=== PATIENT | male | born 1945 | race Caucasian/White ===

== ENCOUNTER → 2018-04-22 | Outpatient (CLI) | payer MEDICARE ==
[~2018-04-22] VITALS: Ht 177.8 cm; Wt 89.9 kg
[~2018-04-22] MED LIST: ALBU2.5V2 NEB; ASPI-891 PO; ATOR40TA28 PO; FURO40 PO; INSLAN SQ; IODOG TP; LOSA50TA37 PO; MULT-1203 PO; OMEG-50 PO
[2018-04-22 10:55] VITALS: BP 133/70
== END | disposition home or self-care (01) ==
LOC: HBOWC 10:14
PROVIDERS: ATTEND Emergency Medicine
DX: T87.89 Other complications of amputation stump (principal); S81.801A Unspecified open wound, right lower leg, initial encounter; E11.42 Type 2 diabetes mellitus with diabetic polyneuropathy; E11.610 Type 2 diabetes mellitus with diabetic neuropathic arthropathy; E11.51 Type 2 diabetes mellitus with diabetic peripheral angiopathy without gangrene; L84 Corns and callosities; Y83.5 Amputation of limb(s) as the cause of abnormal reaction of the patient, or of later complication, without mention of misadventure at the time of the procedure; Y92.89 Other specified places as the place of occurrence of the external cause; X58.XXXA Exposure to other specified factors, initial encounter; Y93.89 Activity, other specified; Y99.8 Other external cause status
CPT/HCPCS: 11042; G0463

== ENCOUNTER → 2018-05-06 | Outpatient (CLI) | payer MEDICARE ==
[2018-05-06 11:20] VITALS: BP 127/55
== END | disposition home or self-care (01) ==
LOC: HBOWC 10:54
PROVIDERS: ATTEND Emergency Medicine
DX: T87.89 Other complications of amputation stump (principal); S81.801D Unspecified open wound, right lower leg, subsequent encounter; E11.42 Type 2 diabetes mellitus with diabetic polyneuropathy; E11.610 Type 2 diabetes mellitus with diabetic neuropathic arthropathy; E11.51 Type 2 diabetes mellitus with diabetic peripheral angiopathy without gangrene; L84 Corns and callosities; X58.XXXD Exposure to other specified factors, subsequent encounter; Y83.5 Amputation of limb(s) as the cause of abnormal reaction of the patient, or of later complication, without mention of misadventure at the time of the procedure
CPT/HCPCS: 11042

== ENCOUNTER → 2018-05-13 | Outpatient (CLI) | payer MEDICARE ==
[2018-05-13 08:54] VITALS: BP 103/53
== END | disposition home or self-care (01) ==
LOC: HBOWC 08:28
PROVIDERS: ATTEND Emergency Medicine
DX: T87.89 Other complications of amputation stump (principal); S91.301D Unspecified open wound, right foot, subsequent encounter; E11.42 Type 2 diabetes mellitus with diabetic polyneuropathy; E11.610 Type 2 diabetes mellitus with diabetic neuropathic arthropathy; E11.51 Type 2 diabetes mellitus with diabetic peripheral angiopathy without gangrene; L84 Corns and callosities; X58.XXXD Exposure to other specified factors, subsequent encounter; Y83.5 Amputation of limb(s) as the cause of abnormal reaction of the patient, or of later complication, without mention of misadventure at the time of the procedure
CPT/HCPCS: 11042

== ENCOUNTER → 2018-05-20 | Outpatient (CLI) | payer MEDICARE ==
[2018-05-20 08:52] VITALS: BP 151/71
== END | disposition home or self-care (01) ==
LOC: HBOWC 08:36
PROVIDERS: ATTEND Emergency Medicine
DX: T87.89 Other complications of amputation stump (principal); S91.301D Unspecified open wound, right foot, subsequent encounter; E11.42 Type 2 diabetes mellitus with diabetic polyneuropathy; E11.610 Type 2 diabetes mellitus with diabetic neuropathic arthropathy; E11.51 Type 2 diabetes mellitus with diabetic peripheral angiopathy without gangrene; L84 Corns and callosities; X58.XXXD Exposure to other specified factors, subsequent encounter; Y83.5 Amputation of limb(s) as the cause of abnormal reaction of the patient, or of later complication, without mention of misadventure at the time of the procedure
CPT/HCPCS: 11042

== ENCOUNTER → 2018-05-27 | Outpatient (CLI) | payer MEDICARE ==
[~2018-05-27] MED LIST changes: +LIDOCAINE HCL 2% 5 ML JELLY TP ONE
[2018-05-27 08:05] VITALS: BP 148/74
== END | disposition home or self-care (01) ==
LOC: HBOWC 07:52
PROVIDERS: ATTEND Emergency Medicine
DX: T87.89 Other complications of amputation stump (principal); S91.301D Unspecified open wound, right foot, subsequent encounter; E11.42 Type 2 diabetes mellitus with diabetic polyneuropathy; E11.610 Type 2 diabetes mellitus with diabetic neuropathic arthropathy; E11.51 Type 2 diabetes mellitus with diabetic peripheral angiopathy without gangrene; L84 Corns and callosities; Y83.5 Amputation of limb(s) as the cause of abnormal reaction of the patient, or of later complication, without mention of misadventure at the time of the procedure
CPT/HCPCS: 11042

== ENCOUNTER → 2018-06-03 | Outpatient (CLI) | payer MEDICARE ==
[~2018-06-03] MED LIST changes: -LIDOCAINE HCL 2% 5 ML JELLY TP ONE
== END | disposition home or self-care (01) ==
LOC: RADPV 08:38
PROVIDERS: ATTEND Emergency Medicine
DX: I73.9 Peripheral vascular disease, unspecified (principal); E11.621 Type 2 diabetes mellitus with foot ulcer; E11.42 Type 2 diabetes mellitus with diabetic polyneuropathy; L97.919 Non-pressure chronic ulcer of unspecified part of right lower leg with unspecified severity; M21.6X1 Other acquired deformities of right foot; E11.51 Type 2 diabetes mellitus with diabetic peripheral angiopathy without gangrene
CPT/HCPCS: 93925

== ENCOUNTER → 2018-06-03 | Outpatient (CLI) | payer MEDICARE ==
[~2018-06-03] MED LIST changes: +LIDOCAINE HCL 2% 5 ML JELLY TP ONE
[2018-06-03 08:58] VITALS: BP 146/77
== END | disposition home or self-care (01) ==
LOC: HBOWC 08:40
PROVIDERS: ATTEND Emergency Medicine
DX: T87.89 Other complications of amputation stump (principal); S91.301D Unspecified open wound, right foot, subsequent encounter; E11.42 Type 2 diabetes mellitus with diabetic polyneuropathy; E11.610 Type 2 diabetes mellitus with diabetic neuropathic arthropathy; E11.51 Type 2 diabetes mellitus with diabetic peripheral angiopathy without gangrene; L84 Corns and callosities; X58.XXXD Exposure to other specified factors, subsequent encounter; Y83.5 Amputation of limb(s) as the cause of abnormal reaction of the patient, or of later complication, without mention of misadventure at the time of the procedure
CPT/HCPCS: 11042

== ENCOUNTER → 2018-06-10 | Outpatient (CLI) | payer MEDICARE ==
[2018-06-10 09:25] VITALS: BP 123/63
[2018-06-10 10:13] LABS: GLUCOMETER DEV NAME(LOC) HBW; GLUCOSE,POINT OF CARE 91 MG/DL (70-110)
== END | disposition home or self-care (01) ==
LOC: HBOWC 09:03
PROVIDERS: ATTEND Emergency Medicine
DX: T87.89 Other complications of amputation stump (principal); S91.301D Unspecified open wound, right foot, subsequent encounter; E11.42 Type 2 diabetes mellitus with diabetic polyneuropathy; E11.610 Type 2 diabetes mellitus with diabetic neuropathic arthropathy; E11.51 Type 2 diabetes mellitus with diabetic peripheral angiopathy without gangrene; L84 Corns and callosities; X58.XXXD Exposure to other specified factors, subsequent encounter; Y83.5 Amputation of limb(s) as the cause of abnormal reaction of the patient, or of later complication, without mention of misadventure at the time of the procedure
CPT/HCPCS: 11042

== ENCOUNTER → 2018-06-17 | Outpatient (CLI) | payer MEDICARE ==
[~2018-06-17] MED LIST changes: -LIDOCAINE HCL 2% 5 ML JELLY TP ONE
[2018-06-17 09:20] VITALS: BP 129/56
== END | disposition home or self-care (01) ==
LOC: HBOWC 08:56
PROVIDERS: ATTEND Emergency Medicine
DX: T87.89 Other complications of amputation stump (principal); S91.301D Unspecified open wound, right foot, subsequent encounter; E11.42 Type 2 diabetes mellitus with diabetic polyneuropathy; E11.610 Type 2 diabetes mellitus with diabetic neuropathic arthropathy; E11.51 Type 2 diabetes mellitus with diabetic peripheral angiopathy without gangrene; L84 Corns and callosities; X58.XXXD Exposure to other specified factors, subsequent encounter; Y83.5 Amputation of limb(s) as the cause of abnormal reaction of the patient, or of later complication, without mention of misadventure at the time of the procedure
CPT/HCPCS: 11042

== ENCOUNTER → 2018-06-24 | Outpatient (CLI) | payer MEDICARE ==
[~2018-06-24] MED LIST changes: +LIDOCAINE HCL 2% 5 ML JELLY TP ONE
[2018-06-24 09:20] VITALS: BP 124/65
== END | disposition home or self-care (01) ==
LOC: HBOWC 08:54
PROVIDERS: ATTEND Emergency Medicine
DX: T87.89 Other complications of amputation stump (principal); S91.301D Unspecified open wound, right foot, subsequent encounter; E11.42 Type 2 diabetes mellitus with diabetic polyneuropathy; E11.610 Type 2 diabetes mellitus with diabetic neuropathic arthropathy; E11.51 Type 2 diabetes mellitus with diabetic peripheral angiopathy without gangrene; L84 Corns and callosities; X58.XXXD Exposure to other specified factors, subsequent encounter; Y83.5 Amputation of limb(s) as the cause of abnormal reaction of the patient, or of later complication, without mention of misadventure at the time of the procedure
CPT/HCPCS: 11042

== ENCOUNTER → 2018-07-08 | Outpatient (CLI) | payer MEDICARE ==
[~2018-07-08] MED LIST changes: -LIDOCAINE HCL 2% 5 ML JELLY TP ONE; +LOSA50TA25 PO; -LOSA50TA37 PO
[2018-07-08 09:30] VITALS: BP 127/72
== END | disposition home or self-care (01) ==
LOC: HBOWC 09:19
PROVIDERS: ATTEND Emergency Medicine
DX: T87.89 Other complications of amputation stump (principal); E11.628 Type 2 diabetes mellitus with other skin complications; E11.610 Type 2 diabetes mellitus with diabetic neuropathic arthropathy; E11.42 Type 2 diabetes mellitus with diabetic polyneuropathy; E11.51 Type 2 diabetes mellitus with diabetic peripheral angiopathy without gangrene; L84 Corns and callosities; Y83.5 Amputation of limb(s) as the cause of abnormal reaction of the patient, or of later complication, without mention of misadventure at the time of the procedure
CPT/HCPCS: 11042

== ENCOUNTER → 2018-07-15 | Outpatient (CLI) | payer MEDICARE ==
[2018-07-15 09:15] VITALS: BP 148/69
== END | disposition home or self-care (01) ==
LOC: HBOWC 08:48
PROVIDERS: ATTEND Emergency Medicine
DX: T87.89 Other complications of amputation stump (principal); E11.628 Type 2 diabetes mellitus with other skin complications; E11.610 Type 2 diabetes mellitus with diabetic neuropathic arthropathy; E11.42 Type 2 diabetes mellitus with diabetic polyneuropathy; E11.51 Type 2 diabetes mellitus with diabetic peripheral angiopathy without gangrene; L84 Corns and callosities; Y83.5 Amputation of limb(s) as the cause of abnormal reaction of the patient, or of later complication, without mention of misadventure at the time of the procedure
CPT/HCPCS: 11042

== ENCOUNTER → 2018-07-22 | Outpatient (CLI) | payer MEDICARE ==
[2018-07-22 08:46] VITALS: BP 139/75
== END | disposition home or self-care (01) ==
LOC: HBOWC 08:30
PROVIDERS: ATTEND Emergency Medicine
DX: T87.89 Other complications of amputation stump (principal); E11.628 Type 2 diabetes mellitus with other skin complications; E11.610 Type 2 diabetes mellitus with diabetic neuropathic arthropathy; E11.42 Type 2 diabetes mellitus with diabetic polyneuropathy; E11.51 Type 2 diabetes mellitus with diabetic peripheral angiopathy without gangrene; L84 Corns and callosities; Y83.5 Amputation of limb(s) as the cause of abnormal reaction of the patient, or of later complication, without mention of misadventure at the time of the procedure
CPT/HCPCS: 11042

== ENCOUNTER → 2018-07-28 | Outpatient (CLI) | payer MEDICARE ==
[2018-07-28 09:05] VITALS: BP 121/59
== END | disposition home or self-care (01) ==
LOC: HBOWC 08:32
PROVIDERS: ATTEND Surgery Plastic and Reconstructive Surgery
DX: T87.89 Other complications of amputation stump (principal); E11.628 Type 2 diabetes mellitus with other skin complications; E11.610 Type 2 diabetes mellitus with diabetic neuropathic arthropathy; E11.42 Type 2 diabetes mellitus with diabetic polyneuropathy; E11.51 Type 2 diabetes mellitus with diabetic peripheral angiopathy without gangrene; L84 Corns and callosities; Y83.5 Amputation of limb(s) as the cause of abnormal reaction of the patient, or of later complication, without mention of misadventure at the time of the procedure
CPT/HCPCS: 11043

== ENCOUNTER → 2018-08-05 | Outpatient (CLI) | payer MEDICARE ==
[2018-08-05 09:10] VITALS: BP 140/78
== END | disposition home or self-care (01) ==
LOC: HBOWC 09:01
PROVIDERS: ATTEND Emergency Medicine
DX: T87.89 Other complications of amputation stump (principal); E11.628 Type 2 diabetes mellitus with other skin complications; E11.610 Type 2 diabetes mellitus with diabetic neuropathic arthropathy; E11.42 Type 2 diabetes mellitus with diabetic polyneuropathy; E11.51 Type 2 diabetes mellitus with diabetic peripheral angiopathy without gangrene; L84 Corns and callosities; Y83.5 Amputation of limb(s) as the cause of abnormal reaction of the patient, or of later complication, without mention of misadventure at the time of the procedure
CPT/HCPCS: 11042

== ENCOUNTER → 2018-08-12 | Outpatient (CLI) | payer MEDICARE ==
[~2018-08-12] MED LIST changes: +LIDOCAINE 2% 5 ML JELLY TP ONE
[2018-08-12 09:29] VITALS: BP 138/75
== END | disposition home or self-care (01) ==
LOC: HBOWC 08:35
PROVIDERS: ATTEND Emergency Medicine
DX: T87.89 Other complications of amputation stump (principal); E11.628 Type 2 diabetes mellitus with other skin complications; E11.610 Type 2 diabetes mellitus with diabetic neuropathic arthropathy; E11.42 Type 2 diabetes mellitus with diabetic polyneuropathy; E11.51 Type 2 diabetes mellitus with diabetic peripheral angiopathy without gangrene; L84 Corns and callosities; Y83.5 Amputation of limb(s) as the cause of abnormal reaction of the patient, or of later complication, without mention of misadventure at the time of the procedure
CPT/HCPCS: 11042

== ENCOUNTER → 2018-08-19 | Outpatient (CLI) | payer MEDICARE ==
[~2018-08-19] MED LIST changes: -LIDOCAINE 2% 5 ML JELLY TP ONE
[2018-08-19 09:05] VITALS: BP 143/73
== END | disposition home or self-care (01) ==
LOC: HBOWC 08:59
PROVIDERS: ATTEND Emergency Medicine
DX: T87.89 Other complications of amputation stump (principal); E11.628 Type 2 diabetes mellitus with other skin complications; E11.610 Type 2 diabetes mellitus with diabetic neuropathic arthropathy; E11.42 Type 2 diabetes mellitus with diabetic polyneuropathy; E11.51 Type 2 diabetes mellitus with diabetic peripheral angiopathy without gangrene; L84 Corns and callosities; Y83.5 Amputation of limb(s) as the cause of abnormal reaction of the patient, or of later complication, without mention of misadventure at the time of the procedure
CPT/HCPCS: 11042

== ENCOUNTER → 2018-08-26 | Outpatient (CLI) | payer MEDICARE ==
[2018-08-26 09:00] VITALS: BP 141/68
== END | disposition home or self-care (01) ==
LOC: HBOWC 08:52
PROVIDERS: ATTEND Emergency Medicine
DX: T87.89 Other complications of amputation stump (principal); E11.621 Type 2 diabetes mellitus with foot ulcer; L97.512 Non-pressure chronic ulcer of other part of right foot with fat layer exposed; E11.610 Type 2 diabetes mellitus with diabetic neuropathic arthropathy; E11.42 Type 2 diabetes mellitus with diabetic polyneuropathy; E11.51 Type 2 diabetes mellitus with diabetic peripheral angiopathy without gangrene; L84 Corns and callosities; Z79.4 Long term (current) use of insulin; Y83.5 Amputation of limb(s) as the cause of abnormal reaction of the patient, or of later complication, without mention of misadventure at the time of the procedure
CPT/HCPCS: 11042

== ENCOUNTER → 2018-09-02 | Outpatient (CLI) | payer MEDICARE ==
[2018-09-02 09:04] VITALS: BP 140/71
== END | disposition home or self-care (01) ==
LOC: HBOWC 08:48
PROVIDERS: ATTEND Emergency Medicine
DX: T87.89 Other complications of amputation stump (principal); E11.621 Type 2 diabetes mellitus with foot ulcer; L97.511 Non-pressure chronic ulcer of other part of right foot limited to breakdown of skin; E11.610 Type 2 diabetes mellitus with diabetic neuropathic arthropathy; E11.42 Type 2 diabetes mellitus with diabetic polyneuropathy; E11.51 Type 2 diabetes mellitus with diabetic peripheral angiopathy without gangrene; L84 Corns and callosities; Z79.4 Long term (current) use of insulin; Y83.5 Amputation of limb(s) as the cause of abnormal reaction of the patient, or of later complication, without mention of misadventure at the time of the procedure
CPT/HCPCS: 11042

== ENCOUNTER → 2018-09-16 | Outpatient (CLI) | payer MEDICARE ==
[2018-09-16 09:04] VITALS: BP 147/76
== END | disposition home or self-care (01) ==
LOC: HBOWC 08:49
PROVIDERS: ATTEND Emergency Medicine
DX: T87.89 Other complications of amputation stump (principal); E11.621 Type 2 diabetes mellitus with foot ulcer; L97.511 Non-pressure chronic ulcer of other part of right foot limited to breakdown of skin; E11.610 Type 2 diabetes mellitus with diabetic neuropathic arthropathy; E11.42 Type 2 diabetes mellitus with diabetic polyneuropathy; E11.51 Type 2 diabetes mellitus with diabetic peripheral angiopathy without gangrene; L84 Corns and callosities; Z79.4 Long term (current) use of insulin; Y83.5 Amputation of limb(s) as the cause of abnormal reaction of the patient, or of later complication, without mention of misadventure at the time of the procedure
CPT/HCPCS: 11042

== ENCOUNTER → 2018-09-30 | Outpatient (CLI) | payer MEDICARE ==
[~2018-09-30] MED LIST changes: -LOSA50TA25 PO; +LOSA50TA64 PO
[2018-09-30 09:01] VITALS: BP 145/80
== END | disposition home or self-care (01) ==
LOC: HBOWC 08:32
PROVIDERS: ATTEND Emergency Medicine
DX: T87.89 Other complications of amputation stump (principal); E11.621 Type 2 diabetes mellitus with foot ulcer; L97.512 Non-pressure chronic ulcer of other part of right foot with fat layer exposed; L84 Corns and callosities; E11.610 Type 2 diabetes mellitus with diabetic neuropathic arthropathy; E11.42 Type 2 diabetes mellitus with diabetic polyneuropathy; E11.51 Type 2 diabetes mellitus with diabetic peripheral angiopathy without gangrene; Z79.4 Long term (current) use of insulin; Y83.5 Amputation of limb(s) as the cause of abnormal reaction of the patient, or of later complication, without mention of misadventure at the time of the procedure
CPT/HCPCS: 11042

== ENCOUNTER → 2018-10-07 | Outpatient (CLI) | payer MEDICARE ==
[2018-10-07 08:58] VITALS: BP 126/67
== END | disposition home or self-care (01) ==
LOC: HBOWC 08:40
PROVIDERS: ATTEND Emergency Medicine
DX: T87.89 Other complications of amputation stump (principal); E11.621 Type 2 diabetes mellitus with foot ulcer; L97.512 Non-pressure chronic ulcer of other part of right foot with fat layer exposed; E11.610 Type 2 diabetes mellitus with diabetic neuropathic arthropathy; L84 Corns and callosities; E11.42 Type 2 diabetes mellitus with diabetic polyneuropathy; E11.51 Type 2 diabetes mellitus with diabetic peripheral angiopathy without gangrene; Z79.4 Long term (current) use of insulin; Y83.5 Amputation of limb(s) as the cause of abnormal reaction of the patient, or of later complication, without mention of misadventure at the time of the procedure
CPT/HCPCS: 11042

== ENCOUNTER → 2018-10-14 | Outpatient (CLI) | payer MEDICARE ==
[2018-10-14 09:02] VITALS: BP 145/69
== END | disposition home or self-care (01) ==
LOC: HBOWC 08:44
PROVIDERS: ATTEND Emergency Medicine
DX: T87.89 Other complications of amputation stump (principal); E11.621 Type 2 diabetes mellitus with foot ulcer; L97.512 Non-pressure chronic ulcer of other part of right foot with fat layer exposed; E11.610 Type 2 diabetes mellitus with diabetic neuropathic arthropathy; L84 Corns and callosities; E11.42 Type 2 diabetes mellitus with diabetic polyneuropathy; E11.51 Type 2 diabetes mellitus with diabetic peripheral angiopathy without gangrene; Z79.4 Long term (current) use of insulin; Y83.5 Amputation of limb(s) as the cause of abnormal reaction of the patient, or of later complication, without mention of misadventure at the time of the procedure
CPT/HCPCS: 11042

== ENCOUNTER → 2018-11-04 | Outpatient (CLI) | payer MEDICARE ==
[2018-11-04 09:00] VITALS: BP 112/63
== END | disposition home or self-care (01) ==
LOC: HBOWC 08:34
PROVIDERS: ATTEND Emergency Medicine
DX: T87.89 Other complications of amputation stump (principal); E11.621 Type 2 diabetes mellitus with foot ulcer; L97.512 Non-pressure chronic ulcer of other part of right foot with fat layer exposed; E11.610 Type 2 diabetes mellitus with diabetic neuropathic arthropathy; L84 Corns and callosities; E11.42 Type 2 diabetes mellitus with diabetic polyneuropathy; E11.51 Type 2 diabetes mellitus with diabetic peripheral angiopathy without gangrene; Z79.4 Long term (current) use of insulin; Z79.82 Long term (current) use of aspirin; Y83.5 Amputation of limb(s) as the cause of abnormal reaction of the patient, or of later complication, without mention of misadventure at the time of the procedure
CPT/HCPCS: 11042

== ENCOUNTER → 2018-11-18 | Outpatient (CLI) | payer MEDICARE ==
[2018-11-18 08:51] VITALS: BP 134/69
== END | disposition home or self-care (01) ==
LOC: HBOWC 08:25
PROVIDERS: ATTEND Emergency Medicine
DX: T87.89 Other complications of amputation stump (principal); E11.621 Type 2 diabetes mellitus with foot ulcer; L97.512 Non-pressure chronic ulcer of other part of right foot with fat layer exposed; L84 Corns and callosities; E11.610 Type 2 diabetes mellitus with diabetic neuropathic arthropathy; E11.42 Type 2 diabetes mellitus with diabetic polyneuropathy; E11.51 Type 2 diabetes mellitus with diabetic peripheral angiopathy without gangrene; Z79.82 Long term (current) use of aspirin; Z79.4 Long term (current) use of insulin; Y83.5 Amputation of limb(s) as the cause of abnormal reaction of the patient, or of later complication, without mention of misadventure at the time of the procedure
CPT/HCPCS: 11042

== ENCOUNTER → 2018-11-25 | Outpatient (CLI) | payer MEDICARE ==
[2018-11-25 09:00] VITALS: BP 120/68
== END | disposition home or self-care (01) ==
LOC: HBOWC 08:43
PROVIDERS: ATTEND Emergency Medicine
DX: T87.89 Other complications of amputation stump (principal); E11.621 Type 2 diabetes mellitus with foot ulcer; L97.512 Non-pressure chronic ulcer of other part of right foot with fat layer exposed; L84 Corns and callosities; E11.610 Type 2 diabetes mellitus with diabetic neuropathic arthropathy; E11.42 Type 2 diabetes mellitus with diabetic polyneuropathy; E11.51 Type 2 diabetes mellitus with diabetic peripheral angiopathy without gangrene; Z79.82 Long term (current) use of aspirin; Z79.4 Long term (current) use of insulin; Y83.5 Amputation of limb(s) as the cause of abnormal reaction of the patient, or of later complication, without mention of misadventure at the time of the procedure
CPT/HCPCS: 11042

== ENCOUNTER → 2018-12-02 | Outpatient (CLI) | payer MEDICARE ==
[2018-12-02 09:33] VITALS: BP 137/77
== END | disposition home or self-care (01) ==
LOC: HBOWC 09:14
PROVIDERS: ATTEND Emergency Medicine
DX: T87.89 Other complications of amputation stump (principal); E11.621 Type 2 diabetes mellitus with foot ulcer; L97.512 Non-pressure chronic ulcer of other part of right foot with fat layer exposed; E11.42 Type 2 diabetes mellitus with diabetic polyneuropathy; E11.610 Type 2 diabetes mellitus with diabetic neuropathic arthropathy; E11.51 Type 2 diabetes mellitus with diabetic peripheral angiopathy without gangrene; L84 Corns and callosities; Z79.4 Long term (current) use of insulin; Z79.82 Long term (current) use of aspirin; Y83.5 Amputation of limb(s) as the cause of abnormal reaction of the patient, or of later complication, without mention of misadventure at the time of the procedure
CPT/HCPCS: 11042

== ENCOUNTER → 2018-12-09 | Outpatient (CLI) | payer MEDICARE ==
[2018-12-09 09:45] VITALS: BP 133/73
== END | disposition home or self-care (01) ==
LOC: HBOWC 09:11
PROVIDERS: ATTEND Emergency Medicine
DX: T87.89 Other complications of amputation stump (principal); E11.621 Type 2 diabetes mellitus with foot ulcer; L97.512 Non-pressure chronic ulcer of other part of right foot with fat layer exposed; E11.610 Type 2 diabetes mellitus with diabetic neuropathic arthropathy; E11.42 Type 2 diabetes mellitus with diabetic polyneuropathy; E11.51 Type 2 diabetes mellitus with diabetic peripheral angiopathy without gangrene; L84 Corns and callosities; Z79.82 Long term (current) use of aspirin; Z79.4 Long term (current) use of insulin; Y83.5 Amputation of limb(s) as the cause of abnormal reaction of the patient, or of later complication, without mention of misadventure at the time of the procedure
CPT/HCPCS: 11042

== ENCOUNTER → 2018-12-30 | Outpatient (CLI) | payer MEDICARE, OTHER ==
[2018-12-30 08:40] VITALS: BP 137/79
== END | disposition home or self-care (01) ==
LOC: HBOWC 07:33
PROVIDERS: ATTEND Emergency Medicine
DX: T87.89 Other complications of amputation stump (principal); E11.621 Type 2 diabetes mellitus with foot ulcer; L97.512 Non-pressure chronic ulcer of other part of right foot with fat layer exposed; E11.42 Type 2 diabetes mellitus with diabetic polyneuropathy; E11.51 Type 2 diabetes mellitus with diabetic peripheral angiopathy without gangrene; L84 Corns and callosities; E11.610 Type 2 diabetes mellitus with diabetic neuropathic arthropathy; Z79.82 Long term (current) use of aspirin; Z79.4 Long term (current) use of insulin; Y83.5 Amputation of limb(s) as the cause of abnormal reaction of the patient, or of later complication, without mention of misadventure at the time of the procedure
CPT/HCPCS: 11042

== ENCOUNTER → 2019-01-06 | Outpatient (CLI) | payer MEDICARE, OTHER ==
[2019-01-06 09:20] VITALS: BP 129/68
== END | disposition home or self-care (01) ==
LOC: HBOWC 08:50
PROVIDERS: ATTEND Emergency Medicine
DX: T87.89 Other complications of amputation stump (principal); E11.621 Type 2 diabetes mellitus with foot ulcer; L97.512 Non-pressure chronic ulcer of other part of right foot with fat layer exposed; L84 Corns and callosities; E11.42 Type 2 diabetes mellitus with diabetic polyneuropathy; E11.51 Type 2 diabetes mellitus with diabetic peripheral angiopathy without gangrene; E11.610 Type 2 diabetes mellitus with diabetic neuropathic arthropathy; Z79.82 Long term (current) use of aspirin; Z79.4 Long term (current) use of insulin; Y83.5 Amputation of limb(s) as the cause of abnormal reaction of the patient, or of later complication, without mention of misadventure at the time of the procedure
CPT/HCPCS: 11042

== ENCOUNTER → 2019-01-13 | Outpatient (CLI) | payer MEDICARE ==
[2019-01-13 09:00] VITALS: BP 147/78
== END | disposition home or self-care (01) ==
LOC: HBOWC 08:37
PROVIDERS: ATTEND Emergency Medicine
DX: T87.89 Other complications of amputation stump (principal); E11.621 Type 2 diabetes mellitus with foot ulcer; L97.512 Non-pressure chronic ulcer of other part of right foot with fat layer exposed; L84 Corns and callosities; E11.42 Type 2 diabetes mellitus with diabetic polyneuropathy; E11.51 Type 2 diabetes mellitus with diabetic peripheral angiopathy without gangrene; E11.610 Type 2 diabetes mellitus with diabetic neuropathic arthropathy; Z79.82 Long term (current) use of aspirin; Z79.4 Long term (current) use of insulin; Y83.5 Amputation of limb(s) as the cause of abnormal reaction of the patient, or of later complication, without mention of misadventure at the time of the procedure
CPT/HCPCS: 11042

== ENCOUNTER → 2019-01-23 | Outpatient (CLI) | payer MEDICARE ==
[2019-01-23 08:46] VITALS: BP 136/76
== END | disposition home or self-care (01) ==
LOC: HBOWC 08:34
PROVIDERS: ATTEND Podiatrist
DX: T87.89 Other complications of amputation stump (principal); E11.621 Type 2 diabetes mellitus with foot ulcer; L97.512 Non-pressure chronic ulcer of other part of right foot with fat layer exposed; E11.610 Type 2 diabetes mellitus with diabetic neuropathic arthropathy; E11.42 Type 2 diabetes mellitus with diabetic polyneuropathy; E11.51 Type 2 diabetes mellitus with diabetic peripheral angiopathy without gangrene; Z79.4 Long term (current) use of insulin; Z79.82 Long term (current) use of aspirin; Y83.5 Amputation of limb(s) as the cause of abnormal reaction of the patient, or of later complication, without mention of misadventure at the time of the procedure
CPT/HCPCS: 11042